=== PATIENT | male | born 1965 | race Caucasian/White ===

== ENCOUNTER 2016-10-29 19:44 | Emergency (ER) | payer BC ==
[~2016-10-29] VITALS: Ht 188 cm; Wt 64.8 kg
[2016-10-29] MEDS ORDERED: AUGM875T28 PO (21:12)
[2016-10-29] MEDS ORDERED: NORCOTAB PO (21:12)
[2016-10-29] MEDS ORDERED: OXYCODONE/APAP 5MG/325MG(BULK FOR ED) 1 TABLET PO ONE (21:15)
[2016-10-29] MEDS ORDERED: AUGMENTIN 875 MG TAB PO ONE (21:15)
[2016-10-29] MEDS ORDERED: ADACEL/BOOSTRIX VACCINE (DIPHTH/PERTUSS/ACELL/TETANUS)0.5ML SYR (90715) IM ONE (21:15)
[2016-10-29 21:25] VITALS: BP 125/95
--- NOTE | 2016-10-30 08:02 | REP ---
Clinical: Trauma. Technique: AP, lateral, bilateral oblique views of the right hand. Findings: Soft tissue injury overlies the third distal phalanx. No obvious foreign body. No acute fracture or dislocation. Impression: Soft tissue injury overlying the third distal phalanx. Signed by Dany De La Cruz MD 10/30/2016 07:54 A
== END 2016-10-29 21:47 | disposition home or self-care (01) ==
LOC: M ED 19:44
DX: S61.302A Unspecified open wound of right middle finger with damage to nail, initial encounter (principal); W54.0XXA Bitten by dog, initial encounter; Y92.410 Unspecified street and highway as the place of occurrence of the external cause; Y93.89 Activity, other specified; Y99.8 Other external cause status; F17.200 Nicotine dependence, unspecified, uncomplicated

== ENCOUNTER 2022-05-12 21:37 | Emergency (ER) | payer BC, OTHER, SELFPAY ==
[~2022-05-12] VITALS: Ht 185.4 cm; Wt 66.0 kg
[~2022-05-12 21:37] MED LIST: AUGM875T28 PO; HYDR-3715 PO
[2022-05-12] MEDS ORDERED: LIDOCAINE 2% MDV 20ML VIAL SC ONE (22:35)
[2022-05-12] MEDS ORDERED: BOOSTRIX/ADACEL VACCINE (DIPHTH/PERTUSS/ACELL/TETANUS) 0.5ML SYR IM.IMMUN ONE (22:35)
[2022-05-12] MEDS ORDERED: KETOROLAC 30 MG/ML 1ML VIAL IV ONE (22:50)
[2022-05-12] MEDS ORDERED: KETOROLAC 60MG 2ML VIAL IM ONE (22:55)
[2022-05-12] MEDS ORDERED: AMOX875T2 PO (23:36)
[2022-05-12] MEDS ORDERED: TRAM50TA2 PO (23:36)
[2022-05-12] MEDS ORDERED: NEOSPORIN OINT 0.9 GM PKT TOP ONE (23:45)
[2022-05-12 23:55] VITALS: BP 120/75
== END 2022-05-12 23:59 | disposition home or self-care (01) ==
LOC: EDBD 21:37 → EDSEX 21:37 → M ED 21:37
DX: S80.01XA Contusion of right knee, initial encounter (principal); S01.81XA Laceration without foreign body of other part of head, initial encounter; W01.10XA Fall on same level from slipping, tripping and stumbling with subsequent striking against unspecified object, initial encounter; Y92.099 Unspecified place in other non-institutional residence as the place of occurrence of the external cause

== ENCOUNTER 2023-09-12 08:28 | Emergency (ER) | payer OTHER, SELFPAY ==
[~2023-09-12] VITALS: Ht 185.4 cm; Wt 73.1 kg
[~2023-09-12 08:28] MED LIST changes: +AMOX875T2 PO; +TRAM50TA2 PO
[2023-09-12 09:58] LABS: INR 1.72; PROTHROMBIN TIME 19.6 SECONDS (12.5-14.5)
[2023-09-12] MEDS ORDERED: HOME MED LIST COMPLETE! XX SCH (10:00)
[2023-09-12] MEDS ORDERED: IBUP200C25 PO (10:00)
[2023-09-12 10:12] LABS: BASO # 0.1 10^3/uL (0.0-0.2); BASO % 0.6 % (0.0-1.0); EOS # 0.1 10^3/uL (0.0-0.5); EOS % 1.4 % (0.0-3.0); HEMATOCRIT 29.9 % (42.0-52.0); LYMPH # 0.7 10^3/uL (1.5-5.0); LYMPH % 7.4 % (24.0-44.0); MEAN CORPUSCULAR VOLUME 100.3 fl (80.0-96.0); MONO # 1.2 10^3/uL (0.0-0.8); MONO % 12.6 % (2.0-8.0); NEUTROPHILS # 7.2 10^3/uL (1.5-8.5); NEUTROPHILS % 77.4 % (36.0-66.0); PLATELET COUNT, AUTOMATED 154 10^3/uL (150-450); RED BLOOD COUNT 2.98 10^6/uL (4.30-6.10); WHITE BLOOD COUNT 9.3 10^3/uL (4.0-10.0)
[2023-09-12 10:20] LABS: HEMOGLOBIN 10.5 g/dl (13.5-17.5); MEAN CORPUSCULAR HEMOGLOBIN 36.7 pg (27.0-33.0); MEAN CORPUSCULAR HGB CONC 36.7 g/dl (32.0-36.5)
[2023-09-12 10:26] LABS: ALBUMIN 2.1 G/DL (3.2-5.2); ALKALINE PHOSPHATASE 289 U/L (46-116); ALT/SGPT 48 U/L (7.0-40); AST/SGOT 180 U/L (<34); BILIRUBIN,DIRECT > 22.5 MG/DL (<0.4); BILIRUBIN,TOTAL 34.1 MG/DL (0.3-1.2); BLOOD UREA NITROGEN 30 MG/DL (9-23); CALCIUM LEVEL 8.2 MG/DL (8.5-10.1); CARBON DIOXIDE LEVEL 28 MMOL/L (20-31); CHLORIDE LEVEL 86 MMOL/L (98-107); CREATININE FOR GFR 2.54 MG/DL (0.70-1.30); GLOMERULAR FILTRATION RATE 28.1 (>56); GLUCOSE, FASTING 101 MG/DL (60-100); LIPASE 94 U/L (12-53); POTASSIUM SERUM 2.4 MMOL/L (3.5-5.1); SODIUM LEVEL 124 MMOL/L (136-145); TOTAL PROTEIN 6.2 G/DL (5.7-8.2)
[2023-09-12] MEDS: NS 1,000 ML IV SCH (11:30)
[2023-09-12] MEDS: PANTOPRAZOLE 40MG VIAL IV ONE (11:30)
[2023-09-12 11:53] LABS: ETHYL ALCOHOL (ETHANOL) 0.003 % (0.000-0.010)
[2023-09-12 11:54] LABS: OSMOLALITY SERUM 265 MOSM/KG (275-295)
[2023-09-12 11:57] LABS: THYROID STIMULATING HORMONE 1.337 uIU/ML (0.55-4.78)
[2023-09-12 12:14] LABS: HEPATITIS B SURFACE ANTIGEN NEGATIVE (NEGATIVE)
[2023-09-12 12:23] LABS: FREE T4 1.04 NG/DL (0.89-1.76)
[2023-09-12 12:35] LABS: HEPATITIS B CORE ANTIBODY IGM NEGATIVE (NEGATIVE); HEPATITIS C VIRUS ABY INDEX < 0.02 INDEX (<0.8)
[2023-09-12] MEDS: POTASSIUM CHLORIDE 10MEQ SR TABLET PO ONE (12:52)
[2023-09-12] MEDS: KCL 10MEQ/100ML SWI (KRUN) 10 MEQ in IV 1 EA IV ONE (13:48)
[2023-09-12 14:28] LABS: CREATININE,RANDOM URINE 146.4 MG/DL
[2023-09-12 18:11] VITALS: BP 108/59; TEMP 96.8; O2SAT 98
== END 2023-09-12 18:14 | disposition short-term general hospital (02) ==
LOC: M ED 08:28
DX: K76.7 Hepatorenal syndrome (principal); R94.31 Abnormal electrocardiogram [ECG] [EKG]; F17.210 Nicotine dependence, cigarettes, uncomplicated; Z79.1 Long term (current) use of non-steroidal anti-inflammatories (NSAID)
CPT/HCPCS: 74176; 80047; 80048; 80074; 80076; 80143; 82077; 82140; 82570; 83605; 83690; 83930; 83935; 84300; 84439; 84443; 85025; 85610; 86850; 86900; 86901; 93005; 93971; 96361; 96365; 96366; 96374; 99285; C9113

== ENCOUNTER 2023-10-01 13:30 | Inpatient (IN) | payer MEDICAID, SELFPAY ==
[~2023-10-01] VITALS: Ht 185.4 cm; Wt 73.1 kg
[~2023-10-01 13:30] MED LIST changes: +IBUP200C25 PO
[2023-10-01 13:40] VITALS: TEMP 96.7
[2023-10-01 14:10] LABS: VENOUS BASE EXCESS -6.3 (-2.0-2.0); VENOUS HCO3 18.1 MMOL/L (23.0-27.0); VENOUS O2 SATURATION 73.5 % (60.0-80.0); VENOUS PARTIAL PRESSURE CO2 32.6 mmHg (38.0-50.0); VENOUS PARTIAL PRESSURE O2 42.9 mmHg (30.0-50.0); VENOUS PH 7.363 UNITS (7.330-7.430); VENOUS STANDARD HCO3 18.9 MMOL/L; VENOUS TOTAL CO2 19.1 MMOL/L (24.0-28.0)
[2023-10-01 14:13] LABS: BASO % 0.1 % (0.0-1.0); EOS # 0.1 10^3/uL (0.0-0.5); EOS % 0.4 % (0.0-3.0); HEMATOCRIT 29.1 % (42.0-52.0); HEMOGLOBIN 10.6 g/dl (13.5-17.5); LYMPH # 0.6 10^3/uL (1.5-5.0); LYMPH % 3.1 % (24.0-44.0); MEAN CORPUSCULAR HEMOGLOBIN 38.5 pg (27.0-33.0); MEAN CORPUSCULAR HGB CONC 36.4 g/dl (32.0-36.5); MEAN CORPUSCULAR VOLUME 105.8 fl (80.0-96.0); MONO # 1.2 10^3/uL (0.0-0.8); MONO % 5.9 % (2.0-8.0); NEUTROPHILS # 18.2 10^3/uL (1.5-8.5); NEUTROPHILS % 89.6 % (36.0-66.0); PLATELET COUNT, AUTOMATED 133 10^3/uL (150-450); RED BLOOD COUNT 2.75 10^6/uL (4.30-6.10); WHITE BLOOD COUNT 20.3 10^3/uL (4.0-10.0)
[2023-10-01] MEDS: FOLIC ACID 1MG TAB PO ONE (14:13)
[2023-10-01] MEDS: MULTIVITAMINS/MINERALS THERAP 1 TAB PO ONE (14:13)
[2023-10-01] MEDS: THIAMINE 100 MG TAB PO ONE (14:13)
[2023-10-01 14:22] LABS: INR 1.6; PARTIAL THROMBOPLASTIN TIME 33.9 SECONDS (24.8-34.2); PROTHROMBIN TIME 18.5 SECONDS (12.5-14.5)
[2023-10-01 14:37] LABS: ETHYL ALCOHOL (ETHANOL) < 0.003 % (0.000-0.010)
[2023-10-01 14:38] LABS: CPK CREATINE PHOSPHOKINASE 41 U/L (46-171)
[2023-10-01 14:56] LABS: ALBUMIN 2.3 G/DL (3.2-5.2); ALKALINE PHOSPHATASE 283 U/L (46-116); ALT/SGPT 80 U/L (7.0-40); AST/SGOT 131 U/L (<34); BILIRUBIN,DIRECT 19.3 MG/DL (<0.4); BLOOD UREA NITROGEN 56 MG/DL (9-23); CALCIUM LEVEL 8.7 MG/DL (8.5-10.1); CARBON DIOXIDE LEVEL 21 MMOL/L (20-31); CHLORIDE LEVEL 103 MMOL/L (98-107); CK-MB VALUE MASS 3.6 NG/ML (<3.6); CREATININE FOR GFR 1.56 MG/DL (0.70-1.30); FREE T4 0.73 NG/DL (0.89-1.76); GLOMERULAR FILTRATION RATE 49.3 (>56); GLUCOSE, FASTING 77 MG/DL (60-100); MAGNESIUM LEVEL 1.8 MG/DL (1.8-2.4); MB/CK RELATIVE INDEX 8.78 (< OR =4); PHOSPHORUS LEVEL 3.9 MG/DL (2.5-4.9); POTASSIUM SERUM 3.9 MMOL/L (3.5-5.1); SALICYLATE LEVEL < 3.0 MG/DL (<30); SODIUM LEVEL 132 MMOL/L (136-145); THYROID STIMULATING HORMONE 3.302 uIU/ML (0.55-4.78); TOTAL PROTEIN 5.9 G/DL (5.7-8.2)
[2023-10-01 14:59] LABS: BILIRUBIN,TOTAL 28.7 MG/DL (0.3-1.2)
[2023-10-01 16:43] LABS: CK-MB VALUE MASS 3.4 NG/ML (<3.6)
[2023-10-01 16:44] LABS: MB/CK RELATIVE INDEX 8.94 (< OR =4)
[2023-10-01 17:00] VITALS: BP 112/60
[2023-10-01] MEDS: MORPHINE 4 MG/ML 1ML VIAL IV ONE (17:05)
[2023-10-01] MEDS ORDERED: ONDANSETRON 4MG ORAL DISINTEGRATING TAB PO PRN (17:05)
[2023-10-01] MEDS ORDERED: SCOPOLAMINE 1MG TRANSDERMAL PATCH TOP PRN (17:05)
[2023-10-01] MEDS ORDERED: PANT40TA29 PO (17:09)
[2023-10-01] MEDS ORDERED: FURO20TA2 PO (17:09)
[2023-10-01] MEDS ORDERED: FOLI1TAB11 PO (17:09)
[2023-10-01] MEDS ORDERED: LACT20EL PO (17:09)
[2023-10-01] MEDS ORDERED: [UNRECOGNIZED DRUG - CODE] PO (17:09)
[2023-10-01] MEDS ORDERED: SPIR50TA4 PO (17:09)
[2023-10-01] MEDS ORDERED: THIA100TA PO (17:09)
[2023-10-01] MEDS ORDERED: BACTDSTA PO (17:09)
[2023-10-01] MEDS: MORPHINE 2 MG/ML 1ML VIAL IV PRN (17:10)
[2023-10-01] MEDS ORDERED: HOME MED LIST COMPLETE! XX SCH (17:15)
[2023-10-01 17:24] VITALS: O2SAT 98
[2023-10-01] MEDS: LORazepam 1 MG TAB PO PRN (17:37)
[2023-10-01] MEDS: MORPHINE 10MG/0.5ML ORAL CONCENTRATE SOLUTION U/D SL PRN (19:18)
[2023-10-05] MEDS: ONDANSETRON 4MG 2ML VIAL IV PRN (12:40)
[2023-10-05] MEDS: LORazepam 2 MG/ML 1ML VIAL IV PRN (12:40)
== END 2023-10-06 02:44 | disposition expired | DRG 280 ==
LOC: M ED 13:30 → EDBD 13:30 → M ED INP 17:02 → M MSPAV 18:18 → OBSVTOIN 10-02 14:04
PROVIDERS: ADMIT Internal Medicine; ATTEND Internal Medicine
DX: K70.31 Alcoholic cirrhosis of liver with ascites (principal); R57.9 Shock, unspecified; I49.01 Ventricular fibrillation; G93.41 Metabolic encephalopathy; N17.9 Acute kidney failure, unspecified; K72.90 Hepatic failure, unspecified without coma; E46 Unspecified protein-calorie malnutrition; D68.4 Acquired coagulation factor deficiency; E87.1 Hypo-osmolality and hyponatremia; E87.70 Fluid overload, unspecified; K70.11 Alcoholic hepatitis with ascites; S06.5XAD Traumatic subdural hemorrhage with loss of consciousness status unknown, subsequent encounter; D72.829 Elevated white blood cell count, unspecified; Z51.5 Encounter for palliative care; Z66 Do not resuscitate; Z79.52 Long term (current) use of systemic steroids; Z79.899 Other long term (current) drug therapy; I46.2 Cardiac arrest due to underlying cardiac condition